=== PATIENT | female | born 1995 | race Two or more races ===

== ENCOUNTER → 2017-12-09 | Outpatient (CLI) | payer OTHER ==
--- NOTE | 2017-12-09 18:05 | CONS ---
CONSULTATION REASON FOR CONSULTATION: Chronic fatigue and sleepiness. This patient is a 22-year-old female currently going to nursing school and also working in the [employer]. She is coming in for increased fatigue and sleepiness. This has been going on for the past 1-2 years. The patient has been very active at work and she is also going to school. She goes to bed around 2 a.m. and sometimes she gets up at noon time the next day; and despite averaging more than 10 hours of sleep, the patient feels tired and sleepy during the day. She is waking up tired and she is sometimes having problems paying attention. She does not fall asleep while driving. She does not fall asleep during class hours. She has not made any mistakes or errors at work that may be attributed to her drowsiness or sleepiness or fatigue. She denies having any head trauma. No history of meningitis. No history of substance abuse. No history of alcoholism. Some snoring, yet no witnessed apneas. No insomnia. No choking or gasping for air during sleep. No grinding of the teeth. No dry mouth. No anxiety or panic attacks. No heartburn. No sleepwalking or sleeptalking. No eating disorder, no sexual dysfunction. She is currently living with a boyfriend. She takes only Depo control injections every 3 months. She has had a total of 10 pounds' weight gain over the past one year. No sleep paralysis. No hallucinations. No cataplexy. No nightmares. Her mother has obstructive sleep apnea. PAST MEDICAL HISTORY: Negative. PAST SURGICAL HISTORY: Tonsillectomy. DRUG ALLERGIES: NOT KNOWN. OUTPATIENT MEDICATIONS: None. She takes control Depo injections every 3 months. SOCIAL HISTORY: Nonsmoker. Drinks alcohol socially. No history of alcoholism. FAMILY HISTORY: Mother has obstructive sleep apnea. REVIEW OF SYSTEMS: Twelve-point review of systems was done. Positive findings were all mentioned above in the history of present illness. The patient does not watch TV in her bedroom. The patient sleeps on her side. The patient does not take naps during the day. No sleep paralysis. No hallucinations. No cataplexy. No acid reflux. No liver problems. No problems with chronic anemia. No thyroid issues. Her blood work has been all within normal as done through her primary care physician. No muscle weakness. No sinus disease. No history of stroke or epilepsy or fibromyalgia or chronic pain. No restlessness in the lower extremities. PHYSICAL EXAMINATION: CURRENT VITALS: BP is 141/66, pulse 73, respiration 16, temperature 99.4, saturation 99% on room air. Height is 5 feet 11 inches. Weight is 215 and BMI is 29.5. Neck size is 14-3/4 inches. Stella score is 9. GENERAL APPEARANCE: Calm, comfortable, in no acute distress. Head is atraumatic, normocephalic. NECK: Supple. Mallampati class IV. No goiter or neck mass. LUNGS: Clear to auscultation. HEART: Heart sounds are regular rate and rhythm. Normal S1, S2. No S3, S4. No murmurs. ABDOMEN: Soft, nontender. No organomegaly. EXTREMITIES: No edema. No cyanosis or clubbing. NEUROLOGIC: Alert and oriented x3. No focal neurological deficits. PSYCH: Negative for anxiety or depression. SKIN: Negative for any wounds or ulceration. IMPRESSION: Chronic fatigue/sleepiness under investigation. Stella Score is 9. PLAN: The exact cause for this patient's chronic fatigue and sleepiness is not clear to me. The patient's history is essentially negative and there is no clear-cut history for any underlying sleep disorder or any other medical problems or comorbidities contributing to this. We will proceed with a first-night sleep study/PSG to assess the patient's sleep architecture and rule out any sleep breathing disorder. If negative, we will proceed with a second-day MSLT to rule out pathologic hypersomnia and narcolepsy. Will continue to follow. MMODL / IJN: [id number] /
== END | disposition home or self-care (01) ==
LOC: SLEEP 15:13
PROVIDERS: ATTEND Internal Medicine Critical Care Medicine
DX: R53.82 Chronic fatigue, unspecified (principal); Z90.89 Acquired absence of other organs
CPT/HCPCS: 99211